=== PATIENT | female | born 1990 | race Hispanic/Latino ===

== ENCOUNTER 2018-12-11 00:08 | Emergency (ER) | payer MEDICARE, OTHER ==
[~2018-12-11] VITALS: Ht 154.9 cm; Wt 74.4 kg
--- NOTE | 2018-12-11 00:16 | NUR ---
ER MD TO TRIAGE FOR INITIAL EVAL
== END 2018-12-11 00:46 | disposition home or self-care (01) ==
LOC: ER 00:08
DX: H57.11 Ocular pain, right eye (principal); H01.00A Unspecified blepharitis right eye, upper and lower eyelids; B95.8 Unspecified staphylococcus as the cause of diseases classified elsewhere
CPT/HCPCS: 99282

== ENCOUNTER 2021-11-23 19:04 | Emergency (ER) | payer MEDICARE, OTHER ==
[~2021-11-23] VITALS: Ht 154.9 cm; Wt 74.4 kg
[2021-11-23] MEDS ORDERED: CILOXAN5 ML OD (19:27)
== END 2021-11-23 19:33 | disposition home or self-care (01) ==
LOC: ER 19:10
DX: H10.9 Unspecified conjunctivitis (principal)
CPT/HCPCS: 99282